=== PATIENT | male | born 1955 | race Caucasian/White ===

== ENCOUNTER 2019-10-30 11:48 | Emergency (ER) | payer BC, MEDICARE ==
--- NOTE | 2019-10-30 12:52 | ER Document Report ---
ED Medical Screen (RME) - General Chief Complaint: Eye Problem Stated Complaint: FLOATERS IN RIGHT EYE Time Seen by Provider: 10/30/19 12:48 Notes: HPI: 64-year-old male presenting for floaters in the right eye today. Patient was driving and suddenly noticed a significant increase in floaters in the eye. Denies ocular pain. Denies vision loss. Denies headache. Denies neck pain. Denies chest pain. Denies weakness numbness or tingling in the extremity. Patient states he has had floaters before and has been evaluated by his acute care occupational therapist for this who told him he had "standard normal floaters". I have greeted and performed a rapid initial assessment of this patient. A comprehensive ED assessment and evaluation of the patient, analysis of test results and completion of the medical decision making process will be conducted by additional ED providers PHYSICAL EXAMINATION: GENERAL: Well-appearing, well-nourished and in no acute distress. HEAD: Atraumatic, normocephalic. EYES: sclera anicteric, conjunctiva are normal. ENT: Moist mucous membranes. NECK: Normal range of motion LUNGS: Normal work of breathing HEART: 2+ radial pulses bilaterally ABD: limited by positioning for exam in triage. EXTREMITIES: no pitting or edema. No cyanosis. NEUROLOGICAL: No focal neurological deficits. Moves all extremities spontaneously and on command. PSYCH: Normal mood, normal affect. SKIN: Warm, Dry, normal turgor, no rashes or lesions noted. - Related Data Allergies/Adverse Reactions: Penicillins Allergy (Verified 10/30/19 12:46) Physical Exam - Vital signs Vitals: Temp Pulse Resp BP Pulse Ox 98.1 F 65 16 127/82 H 97 10/30/19 12:20 10/30/19 12:20 10/30/19 12:20 10/30/19 12:20 10/30/19 12:20 Course - Vital Signs Vital signs: Temp Pulse Resp BP Pulse Ox 98.1 F 65 16 127/82 H 97 10/30/19 12:20 10/30/19 12:20 10/30/19 12:20 10/30/19 12:20 10/30/19 12:20
--- NOTE | 2019-10-30 15:53 | ER Document Report ---
ED Eye Complaint - General Chief Complaint: Eye Problem Stated Complaint: FLOATERS IN RIGHT EYE Time Seen by Provider: 10/30/19 12:48 Mode of Arrival: Ambulatory Information source: Patient Notes: This 64-year-old man presents to the emergency department with a history of multiple floaters involving the right eye. States that he was driving this morning when he began to notice multiple floaters in his right. He denies pain or visual changes with the exception of the floaters. He has had floaters in the past and notes that it was the number which concerned him. He states that he is not diabetic and has no other known eye problems. He denies trauma and does not wear contacts. TRAVEL OUTSIDE OF THE [place] IN LAST 30 DAYS: No - Related Data Allergies/Adverse Reactions: Penicillins Allergy (Verified 10/30/19 12:46) Past Medical History - General Information source: Patient - Social History Smoking Status: Unknown if Ever Smoked Family History: Reviewed & Not Pertinent Patient has suicidal ideation: No Patient has homicidal ideation: No Review of Systems - Review of Systems Notes: Constitutional: Negative for fever. HENT: Negative for sore throat. Eyes: + Multiple floaters right eye. Cardiovascular: Negative for chest pain. Respiratory: Negative for shortness of breath. Gastrointestinal: Negative for abdominal pain, vomiting or diarrhea. Genitourinary: Negative for dysuria. Musculoskeletal: Negative for back pain. Skin: Negative for rash. Neurological: Negative for headaches, weakness or numbness. 10 point ROS negative except as marked above and in HPI. Physical Exam - Vital signs Vitals: Temp Pulse Resp BP Pulse Ox 98.1 F 65 16 127/82 H 97 10/30/19 12:20 10/30/19 12:20 10/30/19 12:20 10/30/19 12:20 10/30/19 12:20 - Notes Notes: PHYSICAL EXAMINATION: Physical Exam: General: Well-nourished well-developed in no acute distress HEENT: NC/AT, pupils equal round and reactive to light, MM moist,nares clear, oropharynx clear, airway patent eye exam: Right eye iris is round and reactive to light, no hemorrhage is noted and the disc is flat and not bulging. Neck: supple, no adenopathy, no masses. Good range of motion Lungs: clear, no wheezing, no rales no rhonchi CVS: Regular rate and rhythm no murmur gallop or rub Abdomen: Soft, active, nontender, no masses, no hepatosplenomegaly Ext: No edema, clubbing or cyanosis. Neuro: Alert and responsive, moving all 4 extremities on command, cranial nerves intact, no focal findings Skin: Intact no open lesions, no rash PSYCH: Normal mood, normal affect. - HEENT Visual acuity- Right eye: 20/30 Visual acuity- Left eye: 20/25 Visual acuity- Both eyes: 20/20 Course - Re-evaluation Re-evalutation: 10/30/19 16:27 Multiple floaters. May be the result of crystal material floating in the vitreous of the eye, given the lack of visual changes or pain, I am referring the patient to outpatient ophthalmology for follow-up evaluation. I discussed this with the patient and he is in agreement. 10/30/19 17:32 Phone call was made to [facility] and Dr. Leon, ophthalmology was to call back. Apparently, the patient states that he is ready to be discharged and he can follow-up as an outpatient. - Vital Signs Vital signs: Temp Pulse Resp BP Pulse Ox 98.1 F 63 16 114/83 97 10/30/19 12:20 10/30/19 16:17 10/30/19 16:17 10/30/19 16:17 10/30/19 16:17 Discharge - Discharge Clinical Impression: Vitreous floaters of right eye Condition: Good Disposition: HOME, SELF-CARE Additional Instructions: You are diagnosed with multiple floaters in the right eye today. It would be important to follow-up with an retail seasonal specialist and have your eyes rechecked closely. Dr. Edin Leon ophthalmology, [facility], [address] [place], [address], telephone number [phone]. HOME CARE INSTRUCTIONS & INFORMATION: Thank you for choosing us for your medical needs. We hope you're satisfied with the care you received. After you leave, you must properly care for your problem and, at the same time, observe its progress. Any condition can change. Some illnesses can change rapidly over hours or days. If your condition worsens, return to the Emergency Department or see your physician promptly. ABOUT YOUR X-RAYS AND EKG'S: If you had an EKG or X-rays taken, they have been read by the Emergency Physician. The X-rays and EKG's will also be read by a Radiologist or [employer] Operator within 24 hours. If discrepancies are noted, you will be notified by telephone. Please be certain the ED has a correct telephone number & address where you can be reached. Also, realize that some fractures or abnormalities do not show up on initial X-rays. If your symptoms continue, see your physician. ABOUT YOUR LABORATORY TEST: If you had laboratory tests, the results have been reviewed by the Emergency Physician. Some test results (for example cultures) may not be available for several days. You will be contacted if any test result shows you need additional treatment. Please be certain the ED has a correct telephone number and address where you can be reached. ABOUT YOUR MEDICATIONS: You will receive instructions on how to take your medicine on the prescription label you receive. Additional information may be provided by the Pharmacy. If you have questions afterwards, call the ED for clarification or further instructions. Some prescribed medications may cause drowsiness. Do not perform tasks such as driving a car or operating machinery without consulting your Pharmacist. If you feel you need a refill of pain medication, your condition will need re-evaluation. Please do not call for a refill of any medication. ABOUT YOUR SIGNATURE: Signature of this document acknowledges to followin. Understanding that you received emergency treatment and that you may be released before al medical problems are known or treated. Please be certain the ED has a correct phone number & address where you can be reached. 2. Acknowledgement that you will arrange for follow-up care as recommended. 3. Authorization for the Emergency Physician to provide information to your follow-up Physician in order to maximize your care. AT ANY TIME, IF YOUR SYMPTOMS CHANGE SIGNIFICANTLY OR WORSEN OR YOU DEVELOP NEW SYMPTOMS, RETURN TO THE EMERGENCY DEPARTMENT IMMEDIATELY FOR RE-EVALUATION. OUR GOAL IS TO PROVIDE EXCELLENT MEDICAL CARE! WE HOPE THAT WE HAVE MET YOUR EXPECTATIONS DURING YOUR EMERGENCY DEPARTMENT VISIT AND THAT YOU FEEL YOU HAVE RECEIVED EXCELLENT CARE!
[2019-10-30 16:23] VITALS: BP 114/83
== END 2019-10-30 17:48 | disposition home or self-care (01) ==
LOC: ER 11:48
DX: H43.391 Other vitreous opacities, right eye (principal); Z88.0 Allergy status to penicillin
CPT/HCPCS: 99283